=== PATIENT | female | born 1945 | race Caucasian/White ===

== ENCOUNTER 2023-06-04 15:42 | Inpatient (IN) ==
--- NOTE | 2023-06-04 16:23 | Emergency Department Note ---
Impression & Plan Left trimalleolar fracture, Closed fracture of distal end of right fibula, Fall from standing ED Provider Note NAME: RAMIRO ACKERMAN AGE: 77 SEX: F : 1945 ARRIVES VIA: Walk-In INFORMANT: Patient ED PROVIDER(S): Orlando Slade MD CHIEF COMPLAINT: Ankle pain PLAN: Disposition: Admit MEDICAL DECISION MAKING: The patient is a pleasant 77-year-old woman with a past medical history of hypothyroidism, low bone density recently started on bisphosphonate, remote history of PUD/GERD on Protonix who presents to the emergency department via walk-in, by her friend for left ankle pain and deformity after she was doing yard work and stepped on a stoop and felt her right ankle give way falling backwards and planting with her left ankle which also gave way with severe pain and deformity. She reports majority of pain is in her left ankle but does have pain in her right ankle but she was able to hop on her right ankle in order to get to the emergency department with the assistance of her friend who is accompanying her at the bedside. Patient denies any anticoagulation. Denies any head strike or loss of consciousness. She reports she did have a light lunch around noon today. She denies any recent illness. The patient is visiting a friend from her home in the [facility]. On evaluation patient is no acute distress, afebrile with heart rate in the 90s and blood pressure 160/80s in the setting of her discomfort. Left ankle is grossly deformed with medial displacement of the lower leg. Distal PMS is intact. Right ankle demonstrates edema swelling and tenderness of the lateral malleolus. Distal PMS is intact. Plain films obtained to confirm suspected left ankle trimalleolar fracture with displacement/angulation as well as right ankle distal fibular fracture. Patient did consent to close reduction at the bedside with pretreatment with morphine which was subsequently performed and successful with improved alignment on follow-up imaging and improvement of the patient's pain. Given bilateral ankle fractures where weightbearing as tolerated on the right fibular fracture will be difficult and risk for repeat fall she does agree with plan for admission for further management. Next I did review the patient's case with orthopedic surgery on-call, Dr. Nix who was able to review the patient's images. Agrees with admission to medicine service with plan to keep the patient n.p.o. after midnight and anticipation of the OR tomorrow morning for treatment of the patient's left trimalleolar fracture. Right lateral malleoli are/fibular fracture can be managed conservatively with fracture boot and weightbearing as tolerated. WBC, H/H and platelets within normal limits. Chemistry without metabolic acidosis. Electrolytes LFTs unremarkable. Case was discussed with Dr. Hollins, [facility] hospitalist, who will evaluate the patient for admission. Triage Nursing notes reviewed and agree them. Prior/external medical records reviewed Vital Signs: reviewed Differential diagnosis: Fracture, subluxation, dislocation, contusion, ligamentous injury, neurovascular, compartment syndrome, rhabdomyolysis, as well as other pathologies. ER treatment provided: See below. Diagnostics interpreted by me: ECG: NSR, 73 bpm, no ectopy, no overt ST elevation or depression. Cardiac Monitoring: An order for continuous cardiac monitoring was placed and demonstrated NSR, 73 bpm, no ectopy. Laboratory studies: See below Imaging studies: See below Consultation(s): Dr. Nix, orthopedic surgery on-call Dr. Hollins, [facility] hospitalist. HPI: The patient is a pleasant 77-year-old woman with a past medical history of hypothyroidism, low bone density recently started on bisphosphonate, remote history of PUD/GERD on Protonix who presents to the emergency department via walk-in, by her friend for left ankle pain and deformity after she was doing yard work and stepped on a stoop and felt her right ankle give way falling backwards and planting with her left ankle which also gave way with severe pain and deformity. She reports majority of pain is in her left ankle but does have pain in her right ankle but she was able to hop on her right ankle in order to get to the emergency department with the assistance of her friend who is accompanying her at the bedside. Patient denies any anticoagulation. Denies any head strike or loss of consciousness. She reports she did have a light lunch around noon today. She denies any recent illness. The patient is visiting a friend from her home in the [place] area. ROS: See above HPI for pertinent positives & negatives. A total of 10 systems reviewed and were otherwise negative. VITALS:See Below PHYSICAL EXAMINATION: GENERAL: Awake, alert, in no distress HENT: Normocephalic, atraumatic. Oropharynx unremarkable. EYES: Normal conjunctiva. Sclera non-icteric. NECK: Supple. No nuchal rigidity. FROM. No JVD. RESPIRATORY: Clear to auscultation. CARDIAC: Regular rate, normal rhythm. Extremities warm and well perfused. Pulses equal. ABDOMEN: Soft, non-distended. No tenderness to palpation. No rebound or guarding. No masses. MUSCULOSKELETAL: Chest examination reveals no tenderness. The back is symmetrical on inspection without obvious abnormality. No midline CTL spine ttp or step-offs. There is no CVA tenderness to palpation. Left ankle is grossly deformed with medial displacement of the lower leg. Distal PMS is intact. Right ankle demonstrates edema swelling and tenderness of the lateral malleolus. Distal PMS is intact. LOWER EXTREMITIES: Calves are equal size bilaterally and non-tender. NEURO: Normal sensorium. No sensory or motor deficits noted. SKIN: No rash or jaundice noted. ED COURSE: Procedures: Ankle Fracture Dislocation Reduction Indication: Left ankle fracture dislocation. Verbal consent obtained. Risks and benefits were explained with the usual customary discussion. Neurovascular examination before the procedure revealed no deficits. The left ankle fracture dislocation was reduced by placing the patient supine and applying gentle inline axial traction on the left forefoot foot and heel with slight plantar flexion while counter traction on the proximal tibia was applied and distal tibia stabilized with hip and knee in flexion. This resulted in reduction without complication. Post-reduction Xray demonstrates improved anatomic alignment. Neurovascular examination after the procedure revealed no deficits. The patient had significant pain relief and tolerated the procedure well. Splint Care: Ortho glass splint (short posterior and sugar tong) was placed by the tissue technician with my assistance, I examined the splint and confirmed proper application/placement/position. Neurovascular status was intact both proximal and distal to the splinted area. Orlando Slade MD Past Med/Surg History Medical History Left trimalleolar fracture GERD (gastroesophageal reflux disease) Hypothyroidism Social History Smoking Status: Never smoker Hx Alcohol Use: Yes Alcohol type: wine Hx Substance Use: No Preferred Language: Faroese Communication Ability: Effective Composite Laminator Required: No Beliefs That Will Affect Care: None Current Living Situation: Alone Feels Safe at Home: Yes Safety Concerns: Feels Safe At This Time Assistive Devices: Glasses Allergies Allergies Allergy/AdvReac Type Severity Reaction Status Date / Time meloxicam [From Mobic] AdvReac Intermediate Rash Unverified 06/04/23 18:45 Home Meds Home Medications Medication Instructions Recorded Confirmed Vitamin D3 See Rx Instructions .Route .COMPLEX 06/04/23 06/04/23 acetaminophen 500 mg tablet 500 mg PO UD PRN pain or fever 06/04/23 06/04/23 alendronate 70 mg tablet 70 mg PO WK 06/04/23 06/04/23 calcium See Rx Instructions .Route .COMPLEX 06/04/23 06/04/23 levothyroxine 75 mcg tablet 75 mcg PO QAM 06/04/23 06/04/23 pantoprazole 40 mg tablet,delayed 40 mg PO HS 06/04/23 06/04/23 release Results & Data (ED) Vital Signs Vital Signs - 24 hr 06/04/23 16:05 06/04/23 16:53 Temperature 36.8 C Temperature Source Oral Pulse Rate 99 H 85 Pulse Rhythm Regular Regular Pulse Strength Normal Respiratory Rate 22 20 Respiratory Effort / Characteristics Non-Labored Spontaneous Respiratory Depth Normal Respiratory Pattern Regular Blood Pressure 168/86 H Blood Pressure Mean 113 Blood Pressure Position Semi-fowlers Pulse Oximetry 98 98 Oxygen Delivery Method Room Air Room Air Sepsis Recent Fever Within 48 Hours No Sepsis New/Unexplained Change in Mental Status N/A Sepsis Action Taken by Nursing No Action Required Laboratory Data Attestation: I reviewed the patient's lab results. 06/04/23 16:39 06/04/23 16:39 Lab Results 06/04/23 Range/Units 16:39 WBC 8.21 (4.8-10.8) K/ul RBC 4.19 L (4.20-5.40) M/uL Hgb 12.8 (12.0-16.0) g/dl Hct 38.4 (37.0-47.0) % MCV 91.6 (80.0-100.0) fL MCH 30.5 (25.0-34.0) pg MCHC 33.3 (32.0-36.0) g/dL RDW Std Deviation 39.4 (36.4-46.3) fL RDW Coeff of Walt 11.8 (11.5-14.5) % Plt Count 201 (130-400) K/uL MPV 9.3 L (9.4-12.4) fL Immature Gran % (Auto) 0.5 % Neut % (Auto) 73.1 % Lymph % (Auto) 19.4 % Mellette % (Auto) 4.3 % Eos % (Auto) 2.2 % Baso % (Auto) 0.5 % Neut # (Auto) 6.01 (1.40-6.50) K/uL Lymph # (Auto) 1.59 (1.20-3.40) K/uL Mellette # (Auto) 0.35 (0.11-0.59) K/uL Eos # (Auto) 0.18 (0.00-0.50) K/uL Baso # (Auto) 0.04 (0.00-0.20) K/uL Immature Gran # (Auto) 0.04 (0.01-0.20) K/uL Sodium 139 (136-145) mmol/L Potassium 3.6 (3.5-5.1) mmol/L Chloride 103 (98-107) mmol/L Carbon Dioxide 28 (21-32) mmol/L Anion Gap 8 (3-11) BUN 14 (6-23) mg/dl Creatinine 0.71 (0.6-1.2) mg/dl Est Cr Clr Drug Dosing 54.3 ml/min Est GFR ( Amer) 93.9 ml/min Est GFR (Non-Af Amer) 81.0 ml/min BUN/Creatinine Ratio 19.7 (10-20) Glucose 130 H (70-99(Fasting)) mg/dl Calcium 9.3 (8.6-10.3) mg/dl Total Bilirubin 0.3 (0.2-1.0) mg/dl AST 19 (13-39) U/L ALT 10 (7-52) U/L Alkaline Phosphatase 83 (34-104) U/L Total Protein 6.4 (6.0-8.3) gm/dl Albumin 4.3 (3.4-5.0) gm/dl Globulin 2.1 L (2.5-4.0) gm/dl Albumin/Globulin Ratio 2.0 (0.9-2) Administered Medications Heparin Sodium (Porcine) (Heparin Sod 5,000 Unit/0.5 Ml Vial) 5,000 units SQ Q8 ELBA Stop: 07/04/23 21:59 Last Admin: 06/04/23 21:58 Dose: 5,000 units Documented By: MADY Lactated Ringer's (Lr) 1,000 mls @ 80 mls/hr IV .[id number] ELBA Stop: 07/05/23 00:00 Last Admin: 06/04/23 23:11 Dose: 80 mls/hr Documented By: MADY Pantoprazole Sodium (Pantoprazole 40 Mg Tab) 40 mg PO HS ELBA Stop: 07/04/23 21:10 Last Admin: 06/04/23 21:58 Dose: 40 mg Documented By: MADY Discontinued Medications Acetaminophen (Ofirmev) 1,000 mg in 100 mls @ 400 mls/hr IV NOW STA Stop: 06/04/23 16:35 Last Infusion: 06/04/23 17:52 Dose: Infused Documented By: Admin: 06/04/23 16:48 Dose: 400 mls/hr Documented By: LONNIE Sodium Chloride (Nss) 500 mls @ 80 mls/hr IV .[id number] ELBA Stop: 07/04/23 16:29 Last Infusion: 06/04/23 21:32 Dose: Infused Documented By: Admin: 06/04/23 16:48 Dose: 80 mls/hr Documented By: LONNIE Morphine Sulfate (Morphine Sulfate 4 Mg/Ml 1 Ml Carp\Vial) 4 mg IV NOW STA Stop: 06/04/23 16:22 Last Admin: 06/04/23 16:48 Dose: 4 mg Documented By: LONNIE Morphine Sulfate (Morphine Sulfate 4 Mg/Ml 1 Ml Carp\Vial) 4 mg IV NOW STA Stop: 06/04/23 17:25 Last Admin: 06/04/23 17:30 Dose: 4 mg Documented By: PRASAD Morphine Sulfate (Morphine Sulfate 2 Mg/Ml Carp) 2 mg IV NOW STA Stop: 06/04/23 18:01 Last Admin: 06/04/23 18:15 Dose: 2 mg Documented By: PRASAD Ondansetron HCl (Ondansetron Inj 2 Mg/Ml 2 Ml Vial) 4 mg IV NOW STA Stop: 06/04/23 16:23 Last Admin: 06/04/23 16:48 Dose: 4 mg Documented By: LONNIE Imaging Data Radiologist's Impression: Ankle X-Ray 06/04/23 16:19 XR ankle RT min 3V routine HISTORY: 77 years-old Female pain fall acute right ankle pain status post fall COMPARISON: None TECHNIQUE: 3 views of the right ankle FINDINGS: Moderate to marked anterolateral prominent soft tissue swelling. Demineralized appearance of the bones. There is an acute transversely oriented fracture of the lateral malleolus with extension into the lateral clear space demonstrating 4 mm distal distraction. Os trigonum. Small joint effusion. No additional acute fracture or dislocation. IMPRESSION: Acute lateral malleolar fracture with soft tissue swelling. ACT 112: Negative or not required by law. The above report was generated using voice recognition software. It may contain grammatical, syntax or spelling errors. Electronically signed by: Joon Can M.D. 06/04/2023 6:08 PM Ankle X-Ray 06/04/23 16:19 XR ankle LT 2V HISTORY: 77 years-old Female pain fall acute left ankle pain status post fall COMPARISON: None TECHNIQUE: 2 views of the left ankle FINDINGS: Limited exam secondary to positioning. Demineralized appearance of the bones. Mild to moderate osteoarthritis. Acute fracture dislocation of the ankle. Acute and displaced medial malleolar fracture demonstrates 2 mm lateral displacement. Acute, comminuted, angulated and displaced distal fibular fracture demonstrates approximately 4 mm lateral and 2.5 cm posterior displacement. Moderate soft tissue swelling. There is apex medial angulation of the dislocated tibiotalar joint. Probable acute nondisplaced posterior malleolar fracture. IMPRESSION: Acute fracture dislocation of the ankle as above. ACT 112: Negative or not required by law. The above report was generated using voice recognition software. It may contain grammatical, syntax or spelling errors. Electronically signed by: Joon Can M.D. 06/04/2023 6:10 PM Ankle X-Ray 06/04/23 17:46 XR ankle LT min 3V routine HISTORY: 77 years-old Female post reduction/splint acute left ankle pain status post trauma COMPARISON: Left ankle radiographs of same day TECHNIQUE: 3 views of the left ankle FINDINGS: Status post reduction and casting of the acute left ankle fractures. There is improved alignment of the ankle fractures, suboptimally evaluated secondary to overlying casting material. 5 mm lateral displacement of the lateral malleolar fracture. Posterior malleolar fracture demonstrates 5 mm posterior displacement. 2 mm medial displacement of the medial malleolar fracture. No dislocation. IMPRESSION: 1. Improved alignment of the acute trimalleolar ankle fracture status post reduction and casting. 2. Status post reduction of the tibiotalar joint. ACT 112: Negative or not required by law. The above report was generated using voice recognition software. It may contain grammatical, syntax or spelling errors. Electronically signed by: Joon Can M.D. 06/04/2023 6:21 PM Discharge Plan Visit Data Chief Complaint: Leg Injury/Pain Stated Complaint: LEG PAIN ED Provider: Orlando Slade Discharge Problem: Left trimalleolar fracture, Closed fracture of distal end of right fibula, Fall from standing Patient Disposition: Admitted As Inpatient Discharge Instructions Interventions: ED Discharge Assessment Last Done: 06/04/23 20:34 Discharge Problem: Left trimalleolar fracture Qualifiers: Encounter type: initial encounter Fracture type: closed Qualified Code(s): S 82.852A - Displaced trimalleolar fracture of left lower leg, initial encounter for closed fracture Closed fracture of distal end of right fibula Qualifiers: Encounter type: initial encounter Fracture morphology: unspecified fracture morphology Qualified Code(s): S82.831A - Other fracture of upper and lower end of right fibula, initial encounter for closed fracture Fall from standing Qualifiers: Encounter type: initial encounter Qualified Code(s): W19.XXXA - Unspecified fall, initial encounter
[2023-06-04] MEDS: ONDANSETRON INJ 2 MG/ML 2 ML VIAL IV STA (16:48)
[2023-06-04] MEDS: MoRPHine SULFATE 4 MG/ML 1 ML CARP\\VIAL IV STA ×2 (16:48→17:30)
[2023-06-04] MEDS: ACETAMINOPHEN 1,000 MG/100 ML VIAL IV STA (16:48)
[2023-06-04] MEDS: SODIUM CHLORIDE 0.9% 500 ML IV SCH (16:48)
[2023-06-04 17:00] LABS: Basophils # (auto) 0.04 K/uL (0.00-0.20); Basophils % (auto) 0.5 %; Eosinophils # (auto) 0.18 K/uL (0.00-0.50); Eosinophils % (auto) 2.2 %; Hematocrit (blood only) 38.4 % (37.0-47.0); Hemoglobin 12.8 g/dl (12.0-16.0); Immature Granulocytes # (auto) 0.04 K/uL (0.01-0.20); Immature Granulocytes % (auto) 0.5 %; Lymphocytes # (auto) 1.59 K/uL (1.20-3.40); Lymphocytes % (auto) 19.4 %; Mean Corpuscular Hemoglobin 30.5 pg (25.0-34.0); Mean Corpuscular Hgb Conc 33.3 g/dL (32.0-36.0); Mean Corpuscular Volume 91.6 fL (80.0-100.0); Mean Platelet Volume 9.3 fL (9.4-12.4); Monocytes # (auto) 0.35 K/uL (0.11-0.59); Monocytes % (auto) 4.3 %; Neutrophils # (auto) 6.01 K/uL (1.40-6.50); Neutrophils % (auto) 73.1 %; Platelet Count 201 K/uL (130-400); RDW Coefficient of Variation 11.8 % (11.5-14.5); RDW Standard Deviation 39.4 fL (36.4-46.3); Red Blood Count 4.19 M/uL (4.20-5.40); White Blood Count 8.21 K/ul (4.8-10.8)
[2023-06-04 17:16] LABS: Albumin Level 4.3 gm/dl (3.4-5.0); BUN Creatinine Ratio 19.7 (10-20); Bilirubin,Total 0.3 mg/dl (0.2-1.0); Calcium 9.3 mg/dl (8.6-10.3); Creatinine Clr Calc Pharmacy 54.3 ml/min; Est GFR (African American) 93.9 ml/min; Globulin 2.1 gm/dl (2.5-4.0); Potassium 3.6 mmol/L (3.5-5.1); Total Protein 6.4 gm/dl (6.0-8.3)
--- NOTE | 2023-06-04 18:09 | XRay Report ---
XR ankle RT min 3V routine HISTORY: 77 years-old Female pain fall acute right ankle pain status post fall COMPARISON: None TECHNIQUE: 3 views of the right ankle FINDINGS: Moderate to marked anterolateral prominent soft tissue swelling. Demineralized appearance of the bone s. There is an acute transversely oriented fracture of the lateral malleolus with extension into the lateral clear space demonstrating 4 mm distal distraction. Os trigonum. Small joint effusion. No sanjay tional acute fracture or dislocation. IMPRESSION: Acute lateral malleolar fracture with soft tissue swelling. ACT 112: Negative or not required by law. The above report was generated using voice recognition software. It may contain grammatical, syntax o r spelling errors. Electronically signed by: Joon Can M.D. 06/04/2023 6:08 PM
--- NOTE | 2023-06-04 18:11 | XRay Report ---
XR ankle LT 2V HISTORY: 77 years-old Female pain fall acute left ankle pain status post fall COMPARISON: None TECHNIQUE: 2 views of the left ankle FINDINGS: Limited exam secondary to positioning. Demineralized appearance of the bones. Mild to moderate osteoa rthritis. Acute fracture dislocation of the ankle. Acute and displaced medial malleolar fracture demo nstrates 2 mm lateral displacement. Acute, comminuted, angulated and displaced distal fibular fractur e demonstrates approximately 4 mm lateral and 2.5 cm posterior displacement. Moderate soft tissue swe lling. There is apex medial angulation of the dislocated tibiotalar joint. Probable acute nondisplace d posterior malleolar fracture. IMPRESSION: Acute fracture dislocation of the ankle as above. ACT 112: Negative or not required by law. The above report was generated using voice recognition software. It may contain grammatical, syntax o r spelling errors. Electronically signed by: Joon Can M.D. 06/04/2023 6:10 PM
[2023-06-04] MEDS: MoRPHine SULFATE 2 MG/ML CARP IV STA (18:15)
--- NOTE | 2023-06-04 18:22 | XRay Report ---
XR ankle LT min 3V routine HISTORY: 77 years-old Female post reduction/splint acute left ankle pain status post trauma COMPARISON: Left ankle radiographs of same day TECHNIQUE: 3 views of the left ankle FINDINGS: Status post reduction and casting of the acute left ankle fractures. There is improved alignment of t he ankle fractures, suboptimally evaluated secondary to overlying casting material. 5 mm lateral disp lacement of the lateral malleolar fracture. Posterior malleolar fracture demonstrates 5 mm posterior displacement. 2 mm medial displacement of the medial malleolar fracture. No dislocation. IMPRESSION: 1. Improved alignment of the acute trimalleolar ankle fracture status post reduction and casting. 2. Status post reduction of the tibiotalar joint. ACT 112: Negative or not required by law. The above report was generated using voice recognition software. It may contain grammatical, syntax o r spelling errors. Electronically signed by: Joon Can M.D. 06/04/2023 6:21 PM
--- NOTE | 2023-06-04 19:00 | History & Physical Report ---
Date of Service June 04, 2023 Assessment & Plan (1) Left trimalleolar fracture: Plan: Left trimalleolar fracture Patient slipped on a stoop landed and rolled her ankle, sustained a left trimalleolar fracture and also bruised her right ankle as she fell No syncope, presyncope, lightheadedness, dizziness. No head strike. No loss of consciousness. She is not on blood thinners Left ankle x-ray: Trimalleolar ankle fracture, repeat x-ray post reduction with improved alignment. Right ankle x-ray: Acute lateral malleolus fracture with soft tissue swelling Patient will have operative repair of the left trimalar fracture with Dr. Nix 06/05/2023. N.p.o. at midnight. Tylenol and morphine on for multimodal pain control Right ankle lateral malleolar fracture may be managed with weightbearing as tolerated; however given her concurrent left ankle fracture and inability to offload weight will be placed in a walking boot Neurovascularly intact at time of bedside assessment Orthopedics consulted RCRI class I risk. No modifiable risk factors at this time. Commend proceeding to surgery as recommended (2) Hypothyroidism: Plan: Continue Synthroid (3) GERD (gastroesophageal reflux disease): Plan: Continue Protonix Patient does have a history of duodenal ulcer with reparation several years ago. Continue Protonix daily, may also use Pepcid as needed Avoid NSAIDs Plan DVT prophylaxis: Heparin subcu, hold morning of surgery CODE STATUS: Full code Disposition: Medical/surgical Diet: Full liquids until midnight, n.p.o. after midnight History of Present Illness Primary Care Provider: NO PCP She is seen at the bedside with her friend Megan present. She is visiting from out of town, [place]. Samantha reports she is normally very healthy and has no medical history other than a history of perforated duodenal ulcer almost 3 years ago. OK now on protonix, and also result to be due to aspirin which is discontinued. She has a history of cervical arthritis and past injury which had some transient numbness and tingling but resolved following initial steroid injections and now does well with PT alone. No weakness or strength deficits. She is a avid walker, somewhat limited by intermittent rare arthritis knee pain but otherwise with no pain and has no history of shortness of breath, dyspnea, chest pain, chest pressure, CHF. She has no history of diabetes. No history of strokes. Denies hypertension. She has not had any bleeding/clotting disease. She has had a rash to Mobic otherwise no medication allergies. She drinks intermittently socially, not daily and not in excess. No current or past tobacco use. No recreational drug use. No history of insulin use Medical History: Reviewed Medications: Reviewed Surgical History: Reviewed Family history: Reviewed Allergies: Reviewed. Rash to mobic. Social History:No tobacco use. Rare social etoh use Code Status: Full Code Surrogate DM: Megan Philippe [phone] Allergies Allergy/AdvReac Type Severity Reaction Status Date / Time meloxicam [From Mob] AdvReac Intermediate Rash Unverified 06/04/23 18:45 Home Medications Medication Instructions Recorded Confirmed Type Vitamin D3 See Rx Instructions .Route .COMPLEX 06/04/23 06/04/23 History acetaminophen 500 mg tablet 500 mg PO UD PRN pain or fever 06/04/23 06/04/23 History alendronate 70 mg tablet 70 mg PO WK 06/04/23 06/04/23 History calcium See Rx Instructions .Route .COMPLEX 06/04/23 06/04/23 History levothyroxine 75 mcg tablet 75 mcg PO QAM 06/04/23 06/04/23 History pantoprazole 40 mg tablet,delayed 40 mg PO HS 06/04/23 06/04/23 History release Past Med/Surg History Medical History (Updated 06/04/23 @ 19:20 by Judah Hollins MD) Left trimalleolar fracture GERD (gastroesophageal reflux disease) Hypothyroidism Social History Smoking Status: Never smoker Preferred Language: Beninese Feels Safe at Home: Yes Physical Exam Physical Exam: General: A&Ox3. NAD. Cooperative. HEENT: Atraumatic, normocephalic. Vision and hearing grossly intact Pulm: CTAB A&P. -wheezes, -rales, -rhonchi. Symmetrical chest rise. No increased work of breathing. No respiratory distress. Cardiac: RRR, -mrg. Radial pulses intact and symmetrical. Abdominal: Nontender, nondistended, soft. BS present. Extremities: Left lower extremity with Jose wrap and immobilization. Sensation in toes intact, able to wiggle toes without difficulty. DP pulse is palpable. Cap refill is brisk. Right lateral ankle is with swelling and contusion. Able to wiggle right toes without difficulty, sensation intact, PT and DP pulse are palpable. Cap refill brisk. No signs of lower extremity neurovascular compromise Results & Data Results & Data Vital Signs (Past 12 Hours) Vital Signs Temp Pulse Resp BP Pulse Ox O2 Del Method 06/04/23 16:53 85 20 98 Room Air 06/04/23 16:05 36.8 C 99 H 22 168/86 H 98 Room Air PG Care Time/CCT Total # of Minutes Spent Total Time Spent with Patient: Total time spent is greater than 50% in coordination of care (as documented) at patient's floor/unit and/or counseling patient: Coding Level of Care Code 70975 INT INP/OBS CARE 2/55MIN Diagnoses Left trimalleolar fracture S82.852A Hypothyroidism E03.9 GERD (gastroesophageal reflux disease) K21.9
[2023-06-04] MEDS ORDERED: MoRPHine SULFATE 4 MG/ML 1 ML CARP\\VIAL IV PRN (19:31)
[2023-06-04] MEDS: PANTOprazole 40 MG TAB PO SCH (21:58)
[2023-06-04] MEDS: HEPARIN SOD 5,000 UNIT/0.5 ML VIAL SQ SCH (21:58)
[2023-06-04] MEDS: LACTATED RINGER'S 1,000 ML IV SCH (23:11)
[2023-06-05] MEDS: LEVOTHYROXINE SODIUM 75 MCG TABLET PO SCH (05:52)
[2023-06-05] MEDS: MoRPHine SULFATE 2 MG/ML CARP IV PRN (06:23)
[2023-06-05 07:14] LABS: Basophils # (auto) 0.02 K/uL (0.00-0.20); Basophils % (auto) 0.3 %; Eosinophils # (auto) 0.05 K/uL (0.00-0.50); Eosinophils % (auto) 0.8 %; Hematocrit (blood only) 32.8 % (37.0-47.0); Hemoglobin 11.1 g/dl (12.0-16.0); Immature Granulocytes # (auto) 0.03 K/uL (0.01-0.20); Immature Granulocytes % (auto) 0.5 %; Lymphocytes # (auto) 1.09 K/uL (1.20-3.40); Lymphocytes % (auto) 17.2 %; Mean Corpuscular Hgb Conc 33.8 g/dL (32.0-36.0); Mean Corpuscular Volume 91.6 fL (80.0-100.0); Mean Platelet Volume 9.5 fL (9.4-12.4); Monocytes % (auto) 7.9 %; Neutrophils # (auto) 4.63 K/uL (1.40-6.50); Neutrophils % (auto) 73.3 %; Platelet Count 183 K/uL (130-400); RDW Coefficient of Variation 11.9 % (11.5-14.5); Red Blood Count 3.58 M/uL (4.20-5.40); White Blood Count 6.32 K/ul (4.8-10.8)
[2023-06-05 07:38] LABS: BUN Creatinine Ratio 17.5 (10-20); Calcium 8.2 mg/dl (8.6-10.3); Creatinine Clr Calc Pharmacy 65.3 ml/min; Est GFR (African American) 102.2 ml/min; Est GFR (Non-African American) 88.2 ml/min; Potassium 3.8 mmol/L (3.5-5.1)
--- NOTE | 2023-06-05 11:54 | Electrocardiogram Report ---
Test Reason : Blood Pressure : / mmHG Vent. Rate : 073 BPM Atrial Rate : 073 BPM P-R Int : 130 ms QRS Dur : 092 ms QT Int : 420 ms P-R-T Axes : 046 015 069 degrees QTc Int : 462 ms Normal sinus rhythm Normal ECG No previous ECGs available Confirmed by Sj Valdez ([id number]) on 06/05/2023 11:53:48 AM Referred By: REFERRED SELF Confirmed By:Sj Valdez
--- NOTE | 2023-06-05 13:28 | Orthopedic Consultation ---
Date of Consultation June 05, 2023 Assessment & Plan (1) Left trimalleolar fracture: 77-year-old female with left trimalleolar ankle fracture Nonweightbearing left lower extremity Pain control DVT prophylaxis Midnight Admission Plan for or tomorrow for left ankle interposition (2) Closed fracture of distal end of right fibula: Plan Weight-bear as tolerated right lower extremity in the cam boot walker History of Present Illness Reason for Consultation: right distal fibula tip fracture left trimalleolar ankle fracture Attending Physician: Kimberly Nunez MD History of Present Illness 77-year-old female presenting after sustaining a fall off her step at home yesterday. She reports that she twisted both of her ankles. Dependable about the left ankle so she presented to emergency department where she was found to have a fracture dislocation of left ankle. She successfully underwent reduction emergency department. She was also found to have a isolated distal for left hip avulsion fracture on the right ankle. Patient was admitted to medical service and orthopedics was consulted for operative management. Allergies Allergy/AdvReac Type Severity Reaction Status Date / Time meloxicam [From Mobic] AdvReac Intermediate Rash Unverified 06/04/23 18:45 Home Medications Medication Instructions Recorded Confirmed Type Vitamin D3 See Rx Instructions .Route .COMPLEX 06/04/23 06/04/23 History acetaminophen 500 mg tablet 500 mg PO UD PRN pain or fever 06/04/23 06/04/23 History alendronate 70 mg tablet 70 mg PO WK 06/04/23 06/04/23 History calcium See Rx Instructions .Route .COMPLEX 06/04/23 06/04/23 History levothyroxine 75 mcg tablet 75 mcg PO QAM 06/04/23 06/04/23 History pantoprazole 40 mg tablet,delayed 40 mg PO HS 06/04/23 06/04/23 History release Patient History Medical History Left trimalleolar fracture GERD (gastroesophageal reflux disease) Hypothyroidism Social History Smoking Status: Never smoker Hx Alcohol Use: Yes Alcohol type: wine Hx Substance Use: No Preferred Language: Serbian Communication Ability: Effective Pencil Inspector Required: No Beliefs That Will Affect Care: None Current Living Situation: Alone Feels Safe at Home: Yes Safety Concerns: Feels Safe At This Time Assistive Devices: Glasses Physical Exam Constitutional: nad, aaox3 Musculoskeletal: LLE - in splint - silt distally to toes - wiggles toes - bcr RLE - in CAM boot - silt s/spn/dpn/t/s - fires ta/ehl/gsc + dp/pt Results & Data Vital Signs (Past 12 Hours) Vital Signs Temp Pulse Resp BP Pulse Ox O2 Del Method 06/05/23 08:13 36.8 C 79 18 106/70 94 Room Air (1) Left trimalleolar fracture Encounter type: initial encounter Fracture type: closed Qualified Code(s): S82.852A - Displaced trimalleolar fracture of left lower leg, initial encounter for closed fracture (2) Closed fracture of distal end of right fibula Encounter type: initial encounter Fracture morphology: unspecified fracture morphology Qualified Code(s): S82.831A - Other fracture of upper and lower end of right fibula, initial encounter for closed fracture
[2023-06-05] MEDS ORDERED: oxyCODONE HCL IR 5 MG TAB (IMMEDIATE RELEASE) PO PRN (14:52)
--- NOTE | 2023-06-05 15:00 | Hospitalist Progress Note ---
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 She routinely stays in [facility] for work during weekdays and stays with a friend, but lives closer to [place]. Fell and sustained bilateral ankle fractures Left trimalleolar fracture Patient will have operative repair of the left trimalar fracture with Dr. Nix 06/06/2023. N.p.o. at midnight. Tylenol and morphine on for multimodal pain control, added po oxycodone for milder pain Right ankle lateral malleolar fracture may be managed with weightbearing as tolerated; however given her concurrent left ankle fracture and inability to offload weight will be placed in a walking boot RCRI class I risk. No modifiable risk factors at this time. recommend proceeding to surgery as planned (2) Hypothyroidism: Plan: Continue Synthroid (3) GERD (gastroesophageal reflux disease): Plan: Continue Protonix Patient does have a history of duodenal ulcer with reparation several years ago. Continue Protonix daily, may also use Pepcid as needed Avoid NSAIDs Plan DVT prophylaxis: Heparin subcu, hold morning of surgery Her home does not require stairs, has an elevator Her friends house here does require stairs She plans to have one or two of the sisters (they are based in [place]) come to stay with her to help with recovery. She drives a lot for work - we discussed she may not be able to drive for some time, until RLE is cleared for driving by ortho Admission and Anticipated Discharge Date Admission Date: June 04, 2023 Subjective L ankle pain controlled with splint and current dose of morphine. R ankle not very painful. Physical Exam Physical Exam: PHYSICAL EXAMINATION Last 24h vital signs reviewed, see documentation in flowsheet General: comfortable appearing, no distress HEENT: Normocephalic, atraumatic, pupils round and equal, sclerae anicteric, no conjunctival injection, moist mucus membranes Lungs: Normal respiratory effort. Clear to auscultation bilaterally. No RRW Heart: Regular rate and rhythm, no murmurs. No JVD Abdomen: Soft, nontender, nondistended. Bowel sounds present. Extremities: toes bilaterally are warm and well-perfused. Wearing surgical shoe right lower extremity and splint wrapped in Jose wrap on left lower extremity Neuro: Alert and oriented x 4, face symmetric, moves 4 extremities well Psych: Normal affect and behavior Results & Data Results & Data Vital Signs (Past 12 Hours) Vital Signs Temp Pulse Resp BP Pulse Ox O2 Del Method 06/05/23 08:13 36.8 C 79 18 106/70 94 Room Air PG Care Time/CCT Total # of Minutes Spent Total Time Spent with Patient: Total time spent is greater than 50% in coordination of care (as documented) at patient's floor/unit and/or counseling patient: Coding Level of Care Code 00093 SUB INP/OBS CARE 2/35MIN Diagnoses Left trimalleolar fracture S82.852A Encounter type: initial encounter Fracture type: closed Hypothyroidism E03.9 GERD (gastroesophageal reflux disease) K21.9 (1) Left trimalleolar fracture Encounter type: initial encounter Fracture type: closed Qualified Code(s): S82.852A - Displaced trimalleolar fracture of left lower leg, initial encounter for closed fracture
[2023-06-06 05:48] LABS: Basophils # (auto) 0.03 K/uL (0.00-0.20); Basophils % (auto) 0.6 %; Eosinophils # (auto) 0.14 K/uL (0.00-0.50); Eosinophils % (auto) 2.6 %; Hematocrit (blood only) 31.8 % (37.0-47.0); Hemoglobin 10.5 g/dl (12.0-16.0); Immature Granulocytes # (auto) 0.01 K/uL (0.01-0.20); Immature Granulocytes % (auto) 0.2 %; Lymphocytes # (auto) 1.21 K/uL (1.20-3.40); Lymphocytes % (auto) 22.7 %; Mean Corpuscular Hemoglobin 30.6 pg (25.0-34.0); Mean Corpuscular Volume 92.7 fL (80.0-100.0); Mean Platelet Volume 9.3 fL (9.4-12.4); Monocytes % (auto) 7.5 %; Neutrophils # (auto) 3.53 K/uL (1.40-6.50); Neutrophils % (auto) 66.4 %; Platelet Count 161 K/uL (130-400); RDW Coefficient of Variation 11.9 % (11.5-14.5); RDW Standard Deviation 40.3 fL (36.4-46.3); Red Blood Count 3.43 M/uL (4.20-5.40); White Blood Count 5.32 K/ul (4.8-10.8)
[2023-06-06 06:00] LABS: Calcium 7.8 mg/dl (8.6-10.3); Creatinine Clr Calc Pharmacy 70.2 ml/min; Est GFR (African American) 104.7 ml/min; Est GFR (Non-African American) 90.3 ml/min; Potassium 3.8 mmol/L (3.5-5.1)
--- NOTE | 2023-06-06 07:04 | Anesthesiology Consultation ---
Date of Service June 06, 2023 Assessment & Plan (1) Encounter for pre-operative examination: Chart Review Chart Review: Acceptable Risk for Surgery ASA ASA2 Proposed Anesthesia Anesthesia Type: General Regional Regional Laterality: Left Site: Popliteal and Adductor Canal History Surgery Operation Date: 06/06/23 07:30 Proposed Procedures p Open Reduction Internal Fixation Left Ankle(Left) - Joon Nix DO Height/Weight Height: 5 ft Weight: 60.9 kg Allergies Allergy/AdvReac Type Severity Reaction Status Date / Time meloxicam [From Mobic] AdvReac Intermediate Rash Unverified 06/04/23 18:45 Medications Home Medications Medication Instructions Recorded Confirmed Last Taken Vitamin D3 See Rx Instructions .Route .COMPLEX 06/04/23 06/04/23 06/04/23 acetaminophen 500 mg tablet 500 mg PO UD PRN pain or fever 06/04/23 06/04/23 Unknown alendronate 70 mg tablet 70 mg PO WK 06/04/23 06/04/23 Unknown calcium See Rx Instructions .Route .COMPLEX 06/04/23 06/04/23 06/04/23 levothyroxine 75 mcg tablet 75 mcg PO QAM 06/04/23 06/04/23 06/04/23 pantoprazole 40 mg tablet,delayed 40 mg PO HS 06/04/23 06/04/23 Unknown release Active Medications Generic Name Dose Route Start Last Admin Trade Name Freq PRN Reason Stop Dose Admin Heparin Sodium (Porcine) 5,000 units 06/04/23 22:00 06/06/23 05:02 Heparin Sod 5,000 Unit/0.5 Ml Vial SQ 07/04/23 21:59 Not Given Q8 ELBA Lactated Ringer's 1,000 mls @ 80 mls/hr 06/05/23 00:00 06/05/23 23:09 Lr IV 07/05/23 00:00 80 mls/hr .[id number] ELBA Administration Levothyroxine Sodium 75 mcg 06/05/23 06:30 06/06/23 05:40 Levothyroxine Sodium 75 Mcg Tablet PO 07/05/23 06:29 75 mcg DAILYBB ELBA Administration Morphine Sulfate 2 mg 06/04/23 19:31 06/05/23 14:44 Morphine Sulfate 2 Mg/Ml Carp IV 06/18/23 19:30 2 mg Q4H PRN Administration Moderate Pain (4,5,6) on NRS Pantoprazole Sodium 40 mg 06/04/23 21:11 06/05/23 21:16 Pantoprazole 40 Mg Tab PO 07/04/23 21:10 40 mg HS ELBA Administration NPO Date Last Intake of Fluids: 06/05/23 Time Last Intake of Fluids: 00:00 Date Last Intake of Solids: 06/04/23 Past Medical History Medical History (Updated 06/06/23 @ 07:16 by Enrique Taylor MD) Left trimalleolar fracture GERD (gastroesophageal reflux disease) Hypothyroidism Past Surgical History Surgical History (Updated 06/06/23 @ 07:15 by Enrique Taylor MD) Hx of colonoscopy Hx of bilateral cataract extraction Social History Smoking Status: Never smoker Hx Alcohol Use: Yes Alcohol type: wine alcohol intake frequency: holidays/special occasions only Hx Substance Use: No Physical Exam Vital Signs Last Vital Signs Temp 36.8 C 06/05/23 19:14 Pulse 90 06/05/23 19:14 Resp 18 06/05/23 19:14 BP 121/71 06/05/23 19:14 Pulse Ox 94 06/05/23 19:14 O2 Del Method Room Air 06/05/23 19:14 Testing Laboratory Results 06/06/23 05:15 06/06/23 05:15 Electrocardiogram Date: 06/04/23 Findings: + NSR @ (73)
[2023-06-06] MEDS ORDERED: ROPIVACAINE 0.5% 5 MG/ML 30 ML VIAL ONE (07:05)
[2023-06-06] MEDS ORDERED: SODIUM CHLORIDE 0.9% PF INJ 10 ML VIAL ONE (07:05)
[2023-06-06] MEDS ORDERED: MIDAZOLAM HCL 1 MG/ML 2ML VIAL ONE (07:12)
[2023-06-06] MEDS ORDERED: fentaNYL citrate PF 100 MCG/2 ML VIAL ONE (07:12)
[2023-06-06] MEDS ORDERED: PROMETHAZINE HCL 6.25 MG in SODIUM CHLORIDE 0.9% 50 ML IV PRN (07:19)
[2023-06-06] MEDS ORDERED: ONDANSETRON INJ 2 MG/ML 2 ML VIAL IV PRN ×2 (07:19→09:57)
[2023-06-06] MEDS ORDERED: ATROPINE SULFATE 0.1 MG/ML 10ML SYR IV PRN (07:19)
--- NOTE | 2023-06-06 07:51 | History & Physical Bridge Note ---
Date of Service June 06, 2023 History & Physical Bridge Note I have examined the patient, reviewed the History & Physical and in the interval since the performance of the History & Physical I have noted the following changes of clinical significance: no changes noted. I met with the patient and we had a lengthy discussion regarding risk benefits potential complications of left ankle open reduction internal fixation. These include but are not limited to infection, neurovascular injury, DVT, nonunion, malunion, hardware failure and need for future surgery. After reviewing these they elected to proceed with surgical intervention and written consent was obtained
[2023-06-06] MEDS: ceFAZolin 2000MG 2,000 MG/15 ML SYR IV ONE (08:04)
[2023-06-06] MEDS ORDERED: DEXAMETHASONE SOD INJ 4 MG/ML VIAL ONE (09:10)
[2023-06-06] MEDS ORDERED: ONDANSETRON INJ 2 MG/ML 2 ML VIAL ONE (09:10)
[2023-06-06] MEDS ORDERED: LIDOCAINE 2% 2 ML VIAL/AMP(20MG/ML) INFIL ONE (09:10)
[2023-06-06] MEDS ORDERED: PROPOFOL IV EMULSION 10 MG/ML 20 ML VIAL IV ONE (09:10)
--- NOTE | 2023-06-06 09:41 | Fluoroscopy Report ---
FL ankle LT 2V CLINICAL HISTORY: LT ANKLE ORIF COMPARISON STUDY: None. FLUOROSCOPY TIME: 22 seconds FLUOROSCOPY IMAGES: 2 Ka,r: 0.5 mGy FINDINGS: Status post internal fixation of a trimalleolar left ankle fracture. The hardware appears i ntact. Alignment appears near-anatomic. IMPRESSION: Fluoroscopic assistance as above. ACT 112: Negative or not required by law. Electronically signed by: Shorty Mcdowell M.D. 06/06/2023 9:40 AM
[2023-06-06] MEDS: HYDROmorphone INJ 1 MG/ML SYRINGE IV PRN (09:46)
--- NOTE | 2023-06-06 09:56 | Post Operative Brief Note ---
Immediate Post Op Note v1 Date of Surgery June 06, 2023 Pre & Post Diagnosis Operation Date: 06/06/23 07:30 Pre-Op Diagnosis: Left trimalleolar fracture Post-Op Diagnosis: Left trimalleolar fracture I identified the patient and participated in the time-out.: Yes Procedure Operation Date: 06/06/23 07:30 Actual Procedures p Open Reduction Internal Fixation Left Ankle(Left) - Joon Nix DO Surgeon Joon Nix DO Fabric Worker Fitter none Estimated Blood Loss 5 Findings Consistent with Post-Op Diagnosis see dictation Complications none
[2023-06-06] MEDS ORDERED: bisacodyL 10 MG SUPP PR PRN (09:57)
[2023-06-06] MEDS ORDERED: NALOXONE HCL 0.4 MG/1 ML VIAL/CARP IV PRN (09:57)
[2023-06-06] MEDS ORDERED: MAGNESIUM HYDROXIDE SUSP 30 ML UDC PO PRN (09:57)
[2023-06-06] MEDS ORDERED: METOCLOPRAMIDE HCL INJ 5 MG/ML 2 ML VIAL IV PRN (09:57)
--- NOTE | 2023-06-06 10:09 | Operative Report ---
Post Operative Report Pre & Post Diagnosis Operation Date: 06/06/23 07:30 Pre-Op Diagnosis: Left trimalleolar fracture Post-Op Diagnosis: Left trimalleolar fracture w/ syndesmotic widening I identified the patient and participated in the time-out.: Yes Procedure Operation Date: 06/06/23 07:30 Actual Procedures p Open Reduction Internal Fixation Left Ankle(Left) with syndesmotic repair - Joon Nix DO Surgeon Joon Nix, Test And Balance Engineer none Estimated Blood Loss 5 Findings Consistent with Post-Op Diagnosis see dictation Specimens see dictation Complications none Indications 77-year-old female presenting after sustaining a tripping injury with a chief complaint of bilateral lower extremity pain. She was found to have a displaced trimalleolar left ankle fracture with a right distal fibula fracture distal to the syndesmosis. Patient was admitted to medical service and orthopedics was consulted for operative management. I had a lengthy discussion with her regarding risk benefits and potential complications of left ankle open reduction internal fixation. After reviewing these she elected to proceed with surgical intervention right consent was obtained Description of Procedure Implants: Synthes one third tubular plate 8 hole, two 3.5 mm cancellous locking screws, three 3.5 mm cortical nonlocking screws, two 4.0 mm x 44 mm partially- threaded cannulated screws, 1 Arthrex tightrope Procedure: Patient was properly marked and identified in the preoperative holding area. She received regional anesthesia. She was then taken back to the operative suite where she received antibiotics per protocol and was positioned supine on a regular OR table with bone foam and nonsterile left thigh tourniquet. Patient was then prepped and draped in the standard orthopedic fashion and timeout was then performed. Esmarch was used to exsanguinate the left lower extremity and the tourniquet was inflated to 250 mmHg. A 7 cm incision overlying the distal fibula was then made with a scalpel. Dissection was carried out down through the subcutaneous tissue to the lateral cortex of the fibula. Fracture site was identified the fracture hematoma was then removed using combination of a curette and rongeur. An 8 hole plate was then selected. Tenaculum was used to anatomically reduce the fracture. A single cortical screw was drilled and placed proximal to the fracture site. Attention was then turned to the distal end of the fracture where 2 locking cancellous screws were then drilled and placed. An additional 2 cortical nonlocking locking screws were then drilled and placed in the proximal aspect of the plate. Attention was then turned to the medial malleolus fracture. A 2 cm incision was made over the tip of the medial malleolus. 2 smooth guidewires were then inserted through the tip of the medial malleolus into the distal tibia. This demonstrated anatomic reduction. Two 4 mm x 44 mm partially-threaded cannulated screws were then inserted over the guidewires and compressed. Guidewires were then removed. This demonstrated satisfactory reduction of the fracture and position of the implants. Stress radiograph was then obtained which did appear to demonstrate some slight widening of the medial clear space. Decision was then made to place a single Arthrex tight rope. Drill was then drilled Quadra cortically through the lateral aspect of the distal fibula plate through to the medial cortex. Drill was then removed and tight rope was then inserted and compressed against the plate. At this point final radiographs were then obtained. Wounds were th en copiously irrigated using normal saline solution. Subcutaneous tissues were then closed using 2-0 Vicryl. 3-0 nylon was then used to close the medial incision. 4-0 running Monocryl followed by Dermabond was used to close the laterally based incision. Patient was then placed in a dressing of Xeroform 4 x 4 gauze web roll ABD followed by a 3 sided splint and Jose wrap. Tourniquet was then deflated. The patient tolerated the procedure well was taken to recovery room in hemodynamically stable condition I attest to the content of the Intraoperative Record and any orders documented therein. Any exceptions are noted below.
--- NOTE | 2023-06-06 10:18 | Anesthesiology Progress Note ---
Date of Service June 06, 2023 Anesthesia Post Procedure Vital Signs Vital Signs: Temp Pulse Pulse Resp BP Pulse Ox O2 Del Method 06/06/23 10:05 37.2 C 69 16 113/70 98 Nasal Cannula 06/06/23 09:55 69 14 110/62 96 Nasal Cannula 06/06/23 09:45 85 20 116/82 100 Oxymask 06/06/23 09:38 37.0 C 73 18 105/68 97 Oxymask 06/05/23 19:14 36.8 C 90 18 121/71 94 Room Air O2 Flow Rate 06/06/23 10:05 2 06/06/23 09:55 3 06/06/23 09:45 4 06/06/23 09:38 6 06/05/23 19:14 Pain Intensity Left Ankle: Pain Intensity: 4 Transfer of Care Handoff Completed per policy Notes Mental Status: alert / awake / arousable Patient Amnestic to Procedure: Yes Nausea / Vomiting: adequately controlled Pain: adequately controlled Airway Patency, RR, SpO2: stable & adequate BP & HR: stable & adequate Hydration State: stable & adequate Anesthetic Complications: no major complications apparent
[2023-06-06] MEDS: SODIUM CHLORIDE 0.9% 1,000 ML IV SCH (11:47)
[2023-06-06] MEDS ORDERED: ceFAZolin 330 MG/ML 1 GM VIAL ONE (13:14)
[2023-06-06] MEDS: ceFAZolin 2000MG 2,000 MG/15 ML SYR IV SCH (15:55)
[2023-06-06 15:56] LABS: Hematocrit (blood only) 34.4 % (37.0-47.0); Hemoglobin 11.2 g/dl (12.0-16.0)
[2023-06-06] MEDS: ACETAMINOPHEN 1,000 MG/100 ML VIAL IV PRN (18:22)
--- NOTE | 2023-06-06 19:38 | Hospitalist Progress Note ---
Date of Service June 06, 2023 Assessment & Plan (1) Left trimalleolar fracture: Plan: s/p ORIF of this fracture today by Dr Nix. Appreciate his assistance. Vitamin D level wnl. DVT proph - asa 81mg BID. Pain meds prn - IV & PO. Repeat H/H post-op acceptable but suspect by tomorrow there will be significant drop. 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 have 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 two of the 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 (they are based in [place]) come to stay with her to help with recovery Admission and Anticipated Discharge Date Admission Date: June 04, 2023 Subjective saw patient post-op from her left ankle ORIF was resting comfortably in bed denied any post-op chest pain, dyspnea, nausea, abd pain had nerve block for L ankle surgery; thus no significant pain in the operative site 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 [employer] but main residence is [place] Review of Systems Review of Systems: gen - feels ok neuro - denies syncope prior to her fall cv - denies cp pulm - denies dyspnea GI - no abd pain Physical Exam Physical Exam: gen - NAD, looks well skin - generalized pallor neck - no JVD mouth - MMM heart - RRR, s1 s2, no murmur lungs - CTA b/l abd - soft NT ND BS+ ext - right foot/ankle in splint; left foot/ankle in walking boot; cap refill b/l toes < 2 sec; warm feet b/l Results & Data Results & Data Vital Signs (Past 12 Hours) Vital Signs Temp Pulse Pulse Resp BP Pulse Ox O2 Del Method 06/06/23 19:35 36.8 C 78 18 100/58 L 95 Room Air 06/06/23 13:30 36.4 C L 75 18 100/66 93 Room Air 06/06/23 12:30 36.9 C 77 18 107/69 96 Room Air 06/06/23 11:30 36.8 C 68 18 104/67 96 Room Air 06/06/23 11:02 68 16 99/63 L 98 Nasal Cannula 06/06/23 10:30 Nasal Cannula 06/06/23 10:30 36.9 C 68 16 115/73 96 Nasal Cannula 06/06/23 10:15 75 14 117/65 97 Nasal Cannula 06/06/23 10:05 37.2 C 69 16 113/70 98 Nasal Cannula 06/06/23 09:55 69 14 110/62 96 Nasal Cannula 06/06/23 09:45 85 20 116/82 100 Oxymask 06/06/23 09:38 37.0 C 73 18 105/68 97 Oxymask O2 Flow Rate 06/06/23 19:35 06/06/23 13:30 06/06/23 12:30 06/06/23 11:30 06/06/23 11:02 2 06/06/23 10:30 2 06/06/23 10:30 2 06/06/23 10:15 2 06/06/23 10:05 2 06/06/23 09:55 3 06/06/23 09:45 4 06/06/23 09:38 6 Laboratory Results Laboratory Results - last 48 hr 06/05/23 06/06/23 06/06/23 06:21 05:15 15:24 WBC 6.32 5.32 RBC 3.58 L 3.43 L Hgb 11.1 L 10.5 L 11.2 L Hct 32.8 L 31.8 L 34.4 L MCV 91.6 92.7 MCH 31.0 30.6 MCHC 33.8 33.0 RDW Std Deviation 40.0 40.3 RDW Coeff of Walt 11.9 11.9 Plt Count 183 161 MPV 9.5 9.3 L Immature Gran % (Auto) 0.5 0.2 Neut % (Auto) 73.3 66.4 Lymph % (Auto) 17.2 22.7 [place] % (Auto) 7.9 7.5 Eos % (Auto) 0.8 2.6 Baso % (Auto) 0.3 0.6 Neut # (Auto) 4.63 3.53 Lymph # (Auto) 1.09 L 1.21 [place] # (Auto) 0.50 0.40 Eos # (Auto) 0.05 0.14 Baso # (Auto) 0.02 0.03 Immature Gran # (Auto) 0.03 0.01 Sodium 139 139 Potassium 3.8 3.8 Chloride 106 107 Carbon Dioxide 29 26 Anion Gap 4 6 BUN 10 9 Creatinine 0.57 L 0.53 L Est Cr Clr Drug Dosing 65.3 70.2 Est GFR ( Amer) 102.2 104.7 Est GFR (Non-Af Amer) 88.2 90.3 BUN/Creatinine Ratio 17.5 17.0 Glucose 100 H 99 Calcium 8.2 L 7.8 L 25-OH Vitamin D Total 39.0 PG Care Time/CCT Total # of Minutes Spent Total Time Spent with Patient: Total time spent is greater than 50% in coordination of care (as documented) at patient's floor/unit and/or counseling patient: Coding Level of Care Code 19945 SUB INP/OBS CARE 2/35MIN Diagnoses Left trimalleolar fracture S82.852A Encounter type: initial encounter Fracture type: closed Hypothyroidism E03.9 GERD (gastroesophageal reflux disease) K21.9 Closed fracture of distal end of right fibula S82.831A Encounter type: initial encounter Fracture morphology: unspecified fracture morphology Acute blood loss anemia D62 (1) Left trimalleolar fracture Encounter type: initial encounter Fracture type: closed Qualified Code(s): S82.852A - Displaced trimalleolar fracture of left lower leg, initial encounter for closed fracture (4) Closed fracture of distal end of right fibula Encounter type: initial encounter Fracture morphology: unspecified fracture morphology Qualified Code(s): S82.831A - Other fracture of upper and lower end of right fibula, initial encounter for closed fracture
[2023-06-06] MEDS: oxyCODONE HCL IR 5 MG TAB (IMMEDIATE RELEASE) PO PRN (19:47)
[2023-06-06] MEDS: SENNA 8.6 MG TAB PO SCH (20:44)
[2023-06-06] MEDS: DOCUSATE SODIUM 100 MG CAP PO SCH (20:45)
[2023-06-07 06:42] LABS: Basophils # (auto) 0.02 K/uL (0.00-0.20); Basophils % (auto) 0.4 %; Eosinophils % (auto) 1.8 %; Hematocrit (blood only) 29.4 % (37.0-47.0); Hemoglobin 9.5 g/dl (12.0-16.0); Immature Granulocytes # (auto) 0.02 K/uL (0.01-0.20); Immature Granulocytes % (auto) 0.4 %; Lymphocytes # (auto) 1.56 K/uL (1.20-3.40); Lymphocytes % (auto) 27.5 %; Mean Corpuscular Hemoglobin 30.5 pg (25.0-34.0); Mean Corpuscular Hgb Conc 32.3 g/dL (32.0-36.0); Mean Corpuscular Volume 94.5 fL (80.0-100.0); Mean Platelet Volume 9.6 fL (9.4-12.4); Monocytes # (auto) 0.46 K/uL (0.11-0.59); Monocytes % (auto) 8.1 %; Neutrophils # (auto) 3.51 K/uL (1.40-6.50); Neutrophils % (auto) 61.8 %; Platelet Count 144 K/uL (130-400); RDW Coefficient of Variation 11.9 % (11.5-14.5); RDW Standard Deviation 40.6 fL (36.4-46.3); Red Blood Count 3.11 M/uL (4.20-5.40); White Blood Count 5.67 K/ul (4.8-10.8)
[2023-06-07 06:59] LABS: BUN Creatinine Ratio 15.7 (10-20); Calcium 7.5 mg/dl (8.6-10.3); Creatinine Clr Calc Pharmacy 72.9 ml/min; Est GFR (Non-African American) 91.5 ml/min; Potassium 3.6 mmol/L (3.5-5.1)
[2023-06-07 08:12] LABS: Thyroid Stimulating Hormone 0.94 uIu/ml (0.300-4.500)
[2023-06-07] MEDS: MULTIVITAMIN TAB PO SCH (08:34)
[2023-06-07] MEDS: ASPIRIN 81 MG ECTAB PO SCH (08:35)
[2023-06-07] MEDS: PANTOprazole 40 MG TAB PO SCH (08:46)
[2023-06-07] MEDS ORDERED: ASPIRIN 81 MG ECTAB PO SCH (09:00)
--- NOTE | 2023-06-07 09:14 | Orthopedic Progress Note ---
Date of Service June 07, 2023 Assessment & Plan (1) Left trimalleolar fracture: Plan: 77 yo female stable POD #1 s/p ORIF left ankle fracture, nonop treatment right ankle fracture 1. Med management 2. DVT prophylaxis- ASA- pt states h/o prior gastric ulcer and contraindication to ASA, consider Lovenox for 14 days postop? 3. PT/OT 4. D/C planning- home vs rehab, ortho to sign off, follow-up with Dr Nix as an outpt (2) Closed fracture of distal end of right fibula: Admission and Anticipated Discharge Date Admission Date: June 04, 2023 Subjective Pt resting in bed, moderate post op pain, better controlled this AM Physical Exam Physical Exam: Cam boot in place right, postop splint in place left, toes mobile, NVI Results & Data Vital Signs (Past 12 Hours) Vital Signs Temp Pulse Resp BP Pulse Ox O2 Del Method 06/07/23 07:29 37 C 85 16 115/72 93 Room Air 06/07/23 03:15 37 C 76 18 105/66 95 Room Air 06/06/23 22:26 36.7 C 69 18 97/59 L 93 Room Air Laboratory Results 06/07/23 06/06/23 Range/Units 05:49 15:24 WBC 5.67 (4.8-10.8) K/ul RBC 3.11 L (4.20-5.40) M/uL Hgb 9.5 L 11.2 L (12.0-16.0) g/dl Hct 29.4 L 34.4 L (37.0-47.0) % MCV 94.5 (80.0-100.0) fL MCH 30.5 (25.0-34.0) pg MCHC 32.3 (32.0-36.0) g/dL RDW Std Deviation 40.6 (36.4-46.3) fL RDW Coeff of Walt 11.9 (11.5-14.5) % Plt Count 144 (130-400) K/uL MPV 9.6 (9.4-12.4) fL Immature Gran % (Auto) 0.4 % Neut % (Auto) 61.8 % Lymph % (Auto) 27.5 % [place] % (Auto) 8.1 % Eos % (Auto) 1.8 % Baso % (Auto) 0.4 % Neut # (Auto) 3.51 (1.40-6.50) K/uL Lymph # (Auto) 1.56 (1.20-3.40) K/uL [place] # (Auto) 0.46 (0.11-0.59) K/uL Eos # (Auto) 0.10 (0.00-0.50) K/uL Baso # (Auto) 0.02 (0.00-0.20) K/uL Immature Gran # (Auto) 0.02 (0.01-0.20) K/uL Sodium 142 (136-145) mmol/L Potassium 3.6 (3.5-5.1) mmol/L Chloride 110 H (98-107) mmol/L Carbon Dioxide 28 (21-32) mmol/L Anion Gap 4 (3-11) BUN 8 (6-23) mg/dl Creatinine 0.51 L (0.6-1.2) mg/dl Est Cr Clr Drug Dosing 72.9 ml/min Est GFR ( Amer) 106.0 ml/min Est GFR (Non-Af Amer) 91.5 ml/min BUN/Creatinine Ratio 15.7 (10-20) Glucose 97 (70-99(Fasting)) mg/dl Calcium 7.5 L (8.6-10.3) mg/dl 25-OH Vitamin D Total 39.0 (30-100) ng/ml TSH 0.940 (0.300-4.500) uIu/ml (1) Left trimalleolar fracture Encounter type: initial encounter Fracture type: closed Qualified Code(s): S82.852A - Displaced trimalleolar fracture of left lower leg, initial encounter for closed fracture (2) Closed fracture of distal end of right fibula Encounter type: initial encounter Fracture morphology: unspecified fracture morphology Qualified Code(s): S82.831A - Other fracture of upper and lower end of right fibula, initial encounter for closed fracture
--- NOTE | 2023-06-07 15:02 | Hospitalist Progress Note ---
Date of Service June 07, 2023 Assessment & Plan (1) Left trimalleolar fracture: Plan: POD #1 - s/p ORIF by Dr Nix. Appreciate his assistance. Vitamin D level wnl. DVT proph - patient with concerns of using aspirin due to prior h/o presumed duodenal ulcer with perforation. We discussed importance of chemical DVT proph. We reviewed options and risks/benefits. We decided together to use Eliquis 2.5mg BID -- will start tonight. Pain meds prn. H/H noted today - no need for PRBCs but will give a dose of IV venofer tomorrow. PT/OT --- non-weightbearing status to LLE. (2) Hypothyroidism: Plan: Continue Synthroid TSH wnl (3) GERD (gastroesophageal reflux disease): Plan: Continue Protonix BID (increased to BID for GI prophy due to her past history) Prior h/o duodenal ulcer with perforation in the past -- see below (4) Closed fracture of distal end of right fibula: Plan: right distal fibula fracture non-operative management WBAT in CAM walker boot (5) Acute blood loss anemia: Plan: 2nd to b/l ankle fractures H/H noted today will give 300mg of IV venofer tomorrow am recheck CBC in am (6) Irregular heart rhythm: Plan: suspect I was hearing extra beats today -- likely not a.fib EKG obtained - NSR; no a.fib monitor (7) Right thigh pain: Plan: off/on for weeks-months obtain doppler RLE -- r/o DVT (8) DVT prophylaxis: Plan: was initially on aspirin 81mg BID due to #9 patient concerned about using an NSAID we reviewed & discussed different chemical DVT proph options after this discussion will stop aspirin and use Eliquis 2.5mg BID PPI increased to BID dosing (9) Duodenal ulcer with perforation: Plan: ~3 years ago presumed duodenal ulcer with perforation did not require surgery treated conservatively with PPI & bowel rest has been on PPI since this episode was attributed to baby aspirin use chronically increase PPI to twice daily dosing as noted above Plan progressing nicely home with home health/PT/OT and assistance from nuns from the [employer] ?? Admission and Anticipated Discharge Date Admission Date: June 04, 2023 Subjective pt states she had a rough night last pm due to severe pain in LLE minor pain in right leg only during ambulation passing flatus but no stool no dyspnea no chest pain patient intends to return home locally 2 sisters with her [employer] ([employer]) will be coming to help her during her recovery we heavily discussed her history of duodenal perforation about 3 years ago she had presented to a hospital in [place] a/p with evidence of perforation/free air treated conservatively with NPO status did not have EGD during the index stay was presumed to have duodenal ulcer with perforation? several weeks following the admission she did undergo outpatient EGD and was told it was normal has been on PPI since then etiology - felt to be low-dose aspirin 81mg daily; thus, it was stopped at that time we had lengthy conversation about the need for DVT proph - we discussed increase in PPI; we discussed asa BID vs Eliquis vs Xarelto vs lovenox ultimately went with Eliquis low-dose for DVT proph Review of Systems Review of Systems: gen - no fevers, eating well cv - no cp, no orthopnea pulm - no dyspnea GI - no abd pain or N/V musculo - right posterior thigh pain for weeks-months, off/on Physical Exam Physical Exam: gen - NAD, looks well, pleasant skin - generalized pallor neck - no JVD mouth - MMM heart - irregular (extra beats?); s1 s2, no murmur lungs - CTA b/l abd - soft NT ND BS+ ext - right foot/ankle in walking boot; edema of right foot present; pulses R foot 2+; cap refill R foot <2 seconds; left foot/ankle/leg in splint; left foot toes exposed; toes are warm cap refill < 2 seconds; toes mildly edematous psych - a/o x 3 Results & Data Results & Data Vital Signs (Past 12 Hours) Vital Signs Temp Pulse Resp BP Pulse Ox O2 Del Method 06/07/23 14:02 37.0 C 75 16 101/56 L 94 Room Air 06/07/23 07:29 37 C 85 16 115/72 93 Room Air 06/07/23 03:15 37 C 76 18 105/66 95 Room Air Laboratory Results Laboratory Results - last 48 hr 06/06/23 06/07/23 15:24 05:49 WBC 5.67 RBC 3.11 L Hgb 11.2 L 9.5 L Hct 34.4 L 29.4 L MCV 94.5 MCH 30.5 MCHC 32.3 RDW Std Deviation 40.6 RDW Coeff of Walt 11.9 Plt Count 144 MPV 9.6 Immature Gran % (Auto) 0.4 Neut % (Auto) 61.8 Lymph % (Auto) 27.5 [place] % (Auto) 8.1 Eos % (Auto) 1.8 Baso % (Auto) 0.4 Neut # (Auto) 3.51 Lymph # (Auto) 1.56 [place] # (Auto) 0.46 Eos # (Auto) 0.10 Baso # (Auto) 0.02 Immature Gran # (Auto) 0.02 Sodium 142 Potassium 3.6 Chloride 110 H Carbon Dioxide 28 Anion Gap 4 BUN 8 Creatinine 0.51 L Est Cr Clr Drug Dosing 72.9 Est GFR ( Amer) 106.0 Est GFR (Non-Af Amer) 91.5 BUN/Creatinine Ratio 15.7 Glucose 97 Calcium 7.5 L 25-OH Vitamin D Total 39.0 TSH 0.940 PG Care Time/CCT Total # of Minutes Spent Total Time Spent with Patient: Total time spent is greater than 50% in coordination of care (as documented) at patient's floor/unit and/or counseling patient: Coding Level of Care Code 19586 SUB INP/OBS CARE 3/50MIN Diagnoses Left trimalleolar fracture S82.852A Encounter type: initial encounter Fracture type: closed Hypothyroidism E03.9 GERD (gastroesophageal reflux disease) K21.9 Closed fracture of distal end of right fibula S82.831A Encounter type: initial encounter Fracture morphology: unspecified fracture morphology Acute blood loss anemia D62 Irregular heart rhythm I49.9 Right thigh pain M79.651 DVT prophylaxis Z29.9 Duodenal ulcer with perforation K26.5 (1) Left trimalleolar fracture Encounter type: initial encounter Fracture type: closed Qualified Code(s): S82.852A - Displaced trimalleolar fracture of left lower leg, initial encounter for closed fracture (4) Closed fracture of distal end of right fibula Encounter type: initial encounter Fracture morphology: unspecified fracture morphology Qualified Code(s): S82.831A - Other fracture of upper and lower end of right fibula, initial encounter for closed fracture
--- NOTE | 2023-06-07 16:10 | Ultrasound Report ---
US venous doppler LE RT HISTORY: 77 years-old Female Right thigh pain x several weeks, travel; r/o DVT acute pain of the rig ht lower extremity with recent travel COMPARISON: None TECHNIQUE: Multiple real-time sonographic images of the right lower extremity deep venous structures were obtained assessing grayscale appearance, color and spectral flow. FINDINGS: Normal flow, compressibility, phasicity and augmentation. Limited exam secondary to patient's walking boot. IMPRESSION: No sonographic evidence of deep venous thrombosis. ACT 112: Negative or not required by law. The above report was generated using voice recognition software. It may contain grammatical, syntax o r spelling errors. Electronically signed by: Joon Can M.D. 06/07/2023 4:09 PM
[2023-06-07] MEDS: ACETAMINOPHEN 500 MG TAB PO SCH (21:51)
[2023-06-07] MEDS: APIXABAN 2.5 MG TAB PO SCH (21:52)
[2023-06-08 06:39] LABS: Hemoglobin 10.7 g/dl (12.0-16.0); Mean Corpuscular Hemoglobin 30.8 pg (25.0-34.0); Mean Corpuscular Hgb Conc 33.4 g/dL (32.0-36.0); Mean Corpuscular Volume 92.2 fL (80.0-100.0); Mean Platelet Volume 9.6 fL (9.4-12.4); Platelet Count 175 K/uL (130-400); RDW Coefficient of Variation 11.9 % (11.5-14.5); RDW Standard Deviation 40.1 fL (36.4-46.3); Red Blood Count 3.47 M/uL (4.20-5.40); White Blood Count 4.96 K/ul (4.8-10.8)
[2023-06-08] MEDS: POLYETHYLENE (MIRALAX) 17 GM PACK PO SCH (08:12)
[2023-06-08] MEDS: IRON SUCROSE 300 MG in SODIUM CHLORIDE 0.9% 250 ML IV ONE (09:07)
--- NOTE | 2023-06-08 14:57 | Electrocardiogram Report ---
Test Reason : Blood Pressure : / mmHG Vent. Rate : 087 BPM Atrial Rate : 087 BPM P-R Int : 136 ms QRS Dur : 074 ms QT Int : 356 ms P-R-T Axes : 015 013 034 degrees QTc Int : 428 ms Normal sinus rhythm Low voltage QRS Borderline ECG When compared with ECG of 04-JUN-2023 18:35, No significant change was found Confirmed by Nicola Brown ([id number]) on 06/08/2023 2:57:09 PM Referred By: REFERRED SELF Confirmed By:Nicola Brown
--- NOTE | 2023-06-08 17:04 | Hospitalist Progress Note ---
Date of Service June 08, 2023 Assessment & Plan (1) Left trimalleolar fracture: Plan: 77 y/o admitted with bilateral ankle fractures after mechanical fall - stepped off a curb ORIF by Dr Nix 06/05 Follow up with him while in [place], then in about a month will go to [place] for the summer and will need to establish local ortho follow up - discussed Vitamin D level wnl. DVT proph - cont apixaban 2.5 bid. Had previous perforated DU so prefers to avoid aspirin Stopped morphine IV (none x 24h) cont APAP, oxycodone prn PT/OT --- non-weightbearing status to LLE. Recommended rehab because she still has difficulty protecting NWB on LLE. Referred to [facility]. (2) Closed fracture of distal end of right fibula: Plan: right distal fibula fracture non-operative management WBAT in CAM walker boot (3) Hypothyroidism: Plan: Continue Synthroid TSH wnl (4) GERD (gastroesophageal reflux disease): Plan: Continue Protonix BID (increased to BID for GI prophy due to her past history) Prior h/o duodenal ulcer with perforation in the past -- see below (5) Acute blood loss anemia: Plan: 2nd to b/l ankle fractures 300mg of IV venofer 06/06 CBC stable today (6) Right thigh pain: Plan: off/on for weeks-months obtain doppler RLE -- r/o DVT (7) Duodenal ulcer with perforation: Plan: ~3 years ago presumed duodenal ulcer with perforation did not require surgery treated conservatively with PPI & bowel rest has been on PPI since this episode was attributed to baby aspirin use chronically increased PPI to twice daily dosing as noted above. can go back to daily when anticoagulation stopped Plan Admission and Anticipated Discharge Date Admission Date: June 04, 2023 Subjective Bilateral ankle pain much improved today, including with standing. No dyspnea/CP/nausea, had BM today Physical Exam 2 Physical Exam: PHYSICAL EXAMINATION Last 24h vital signs reviewed, see documentation in flowsheet General: comfortable appearing, no distress HEENT: Normocephalic, atraumatic, pupils round and equal, sclerae anicteric, no conjunctival injection, moist mucus membranes Lungs: Normal respiratory effort. Heart: Abdomen: nondistended. Extremities: toes bilaterally are warm and well-perfused. Wearing surgical shoe right lower extremity and cast on left lower extremity Neuro: Alert and oriented x 4, face symmetric, moves 4 extremities well Psych: Normal affect and behavior Results & Data Results & Data Vital Signs (Past 12 Hours) Vital Signs Temp Pulse Resp BP Pulse Ox O2 Del Method 06/08/23 14:48 37.0 C 80 16 126/79 95 Room Air 06/08/23 11:17 36.8 C 82 17 117/77 96 Room Air 06/08/23 10:32 36.8 C 83 17 128/80 96 Room Air 06/08/23 09:39 99 H 126/84 06/08/23 09:10 36.9 C 90 17 96 Room Air 06/08/23 07:04 37.1 C 77 16 110/76 94 Room Air Laboratory Results 06/08/23 06:03 06/07/23 05:49 PG Care Time/CCT Total # of Minutes Spent Total Time Spent with Patient: Total time spent is greater than 50% in coordination of care (as documented) at patient's floor/unit and/or counseling patient: Coding Level of Care Code 17242 SUB INP/OBS CARE 2/35MIN Diagnoses Left trimalleolar fracture S82.852A Encounter type: initial encounter Fracture type: closed Closed fracture of distal end of right fibula S82.831A Encounter type: initial encounter Fracture morphology: unspecified fracture morphology Hypothyroidism E03.9 GERD (gastroesophageal reflux disease) K21.9 Acute blood loss anemia D62 Right thigh pain M79.651 Duodenal ulcer with perforation K26.5 (1) Left trimalleolar fracture Encounter type: initial encounter Fracture type: closed Qualified Code(s): S 82.852A - Displaced trimalleolar fracture of left lower leg, initial encounter for closed fracture (2) Closed fracture of distal end of right fibula Encounter type: initial encounter Fracture morphology: unspecified fracture morphology Qualified Code(s): S82.831A - Other fracture of upper and lower end of right fibula, initial encounter for closed fracture
--- NOTE | 2023-06-09 15:28 | Hospitalist Progress Note ---
Date of Service June 09, 2023 Assessment & Plan (1) Left trimalleolar fracture: Plan: 77 y/o admitted with bilateral ankle fractures after mechanical fall - stepped off a curb ORIF by Dr Nix 06/05 Follow up with him while in [place], then in about a month will go to [place] for the summer and will need to establish local ortho follow up - discussed Vitamin D level wnl. Acute blood loss anemia - Related to fracture/surgery - Hct normal initially, dilutional drop after admission/IVF, thereafter stable with Hct around 32. oral iron few weeks DVT proph - cont apixaban 2.5 bid. Had previous perforated DU so prefers to avoid aspirin Stopped morphine IV (none x 24h) cont APAP, oxycodone prn PT/OT --- non-weightbearing status to LLE. Recommended rehab because she still has difficulty protecting NWB on LLE. Referred to [facility] pending. (2) Closed fracture of distal end of right fibula: Plan: right distal fibula fracture non-operative management WBAT in CAM walker boot (3) Hypothyroidism: Plan: Continue Synthroid TSH wnl (4) GERD (gastroesophageal reflux disease): Plan: Continue Protonix BID (increased to BID for GI prophy due to her past history) Prior h/o duodenal ulcer with perforation in the past -- see below (5) Acute blood loss anemia: Plan: 2nd to b/l ankle fractures 300mg of IV venofer 06/06 CBC stable today (6) Right thigh pain: Plan: off/on for weeks-months obtain doppler RLE -- r/o DVT (7) Duodenal ulcer with perforation: Plan: ~3 years ago presumed duodenal ulcer with perforation did not require surgery treated conservatively with PPI & bowel rest has been on PPI since this episode was attributed to baby aspirin use chronically increased PPI to twice daily dosing as noted above. can go back to daily when anticoagulation stopped Plan Admission and Anticipated Discharge Date Admission Date: June 04, 2023 Subjective doing really well, no pain R ankle, L ankle pain improved - intermittent sharp spikes but has not used any opioid meds today Physical Exam Physical Exam: PHYSICAL EXAMINATION Last 24h vital signs reviewed, see documentation in flowsheet General: comfortable appearing, no distress exam unchanged 06/08- HEENT: Normocephalic, atraumatic, pupils round and equal, sclerae anicteric, no conjunctival injection, moist mucus membranes Lungs: Normal respiratory effort. Heart: Abdomen: nondistended. Extremities: toes bilaterally are warm and well-perfused. Wearing CAM boot right lower extremity and cast on left lower extremity Neuro: Alert and oriented x 4, face symmetric, moves 4 extremities well Psych: Normal affect and behavior Results & Data Results & Data Vital Signs (Past 12 Hours) Vital Signs Temp Pulse Resp BP Pulse Ox O2 Del Method 06/09/23 07:11 36.6 C 86 16 130/77 95 Room Air PG Care Time/CCT Total # of Minutes Spent Total Time Spent with Patient: Total time spent is greater than 50% in coordination of care (as documented) at patient's floor/unit and/or counseling patient: Coding Level of Care Code 65318 SUB INP/OBS CARE 03/04MIN Diagnoses Left trimalleolar fracture S82.852A Encounter type: initial encounter Fracture type: closed Closed fracture of distal end of right fibula S82.831A Encounter type: initial encounter Fracture morphology: unspecified fracture morphology Hypothyroidism E03.9 GERD (gastroesophageal reflux disease) K21.9 Acute blood loss anemia D62 Right thigh pain M79.651 Duodenal ulcer with perforation K26.5 (1) Left trimalleolar fracture Encounter type: initial encounter Fracture type: closed Qualified Code(s): S82.852A - Displaced trimalleolar fracture of left lower leg, initial encounter for closed fracture (2) Closed fracture of distal end of right fibula Encounter type: initial encounter Fracture morphology: unspecified fracture morphology Qualified Code(s): S82.831A - Other fracture of upper and lower end of right fibula, initial encounter for closed fracture
--- NOTE | 2023-06-09 17:07 | Discharge Summary ---
Date of Service June 11, 2023 Admission HPI Per Admitting Provider She is seen at the bedside with her friend Megan present. She is visiting from out of town, [place]. Samantha reports she is normally very healthy and has no medical history other than a history of perforated duodenal ulcer almost 3 years ago. OK now on protonix, and also result to be due to aspirin which is discontinued. She has a history of cervical arthritis and past injury which had some transient numbness and tingling but resolved following initial steroid injections and now does well with PT alone. No weakness or strength deficits. She is a avid walker, somewhat limited by intermittent rare arthritis knee pain but otherwise with no pain and has no history of shortness of breath, dyspnea, chest pain, chest pressure, CHF. She has no history of diabetes. No history of strokes. Denies hypertension. She has not had any bleeding/clotting disease. She has had a rash to Mobic otherwise no medication allergies. She drinks intermittently socially, not daily and not in excess. No current or past tobacco use. No recreational drug use. No history of insulin use Medical History: Reviewed Medications: Reviewed Surgical History: Reviewed Family history: Reviewed Allergies: Reviewed. Rash to mobic. Social History:No tobacco use. Rare social etoh use Code Status: Full Code Surrogate DM: Megan Philippe [phone] Principal Diagnosis Bilateral ankle fractures secondary to mechanical fall Discharge Exam PHYSICAL EXAMINATION Last 24h vital signs reviewed, see documentation in flowsheet General: comfortable appearing, no distress HEENT: Normocephalic, atraumatic, pupils round and equal, sclerae anicteric, no conjunctival injection, moist mucus membranes Lungs: Normal respiratory effort. CTAB Heart: Reg no mrg Abdomen: nondistended. Extremities: toes bilaterally are warm and well-perfused. Wearing CAM boot right lower extremity and cast on left lower extremity Neuro: Alert and oriented x 4, face symmetric, moves 4 extremities well Psych: Normal affect and behavior Discharge Data Allergies Allergy/AdvReac Type Severity Reaction Status Date / Time meloxicam [From Mobic] AdvReac Intermediate Rash Unverified 06/04/23 18:45 Consultations 06/04/23 18:59 ED Decision to Admit Stat 06/04/23 21:11 Consult Orthopedic Surgery Routine Procedures Performed Operation Date: 06/06/23 07:30 Actual Procedures p Open Reduction Internal Fixation Left Ankle(Left) - Joon Nix DO Ordered Studies 06/06/23 07:08 US - OR guided needle placemen Routine 06/06/23 07:30 FL ankle LT 2V Routine 06/07/23 15:00 US venous doppler LE RT Urgent Ankle X-Ray 06/04/23 16:19 XR ankle RT min 3V routine HISTORY: 77 years-old Female pain fall acute right ankle pain status post fall COMPARISON: None TECHNIQUE: 3 views of the right ankle FINDINGS: Moderate to marked anterolateral prominent soft tissue swelling. Demineralized appearance of the bones. There is an acute transversely oriented fracture of the lateral malleolus with extension into the lateral clear space demonstrating 4 mm distal distraction. Os trigonum. Small joint effusion. No additional acute fracture or dislocation. IMPRESSION: Acute lateral malleolar fracture with soft tissue swelling. ACT 112: Negative or not required by law. The above report was generated using voice recognition software. It may contain grammatical, syntax or spelling errors. Electronically signed by: Joon Can M.D. 06/04/2023 6:08 PM Ankle X-Ray 06/04/23 16:19 XR ankle LT 2V HISTORY: 77 years-old Female pain fall acute left ankle pain status post fall COMPARISON: None TECHNIQUE: 2 views of the left ankle FINDINGS: Limited exam secondary to positioning. Demineralized appearance of the bones. Mild to moderate osteoarthritis. Acute fracture dislocation of the ankle. Acute and displaced medial malleolar fracture demonstrates 2 mm lateral displacement. Acute, comminuted, angulated and displaced distal fibular fracture demonstrates approximately 4 mm lateral and 2.5 cm posterior displacement. Moderate soft tissue swelling. There is apex medial angulation of the dislocated tibiotalar joint. Probable acute nondisplaced posterior malleolar fracture. IMPRESSION: Acute fracture dislocation of the ankle as above. ACT 112: Negative or not required by law. The above report was generated using voice recognition software. It may contain grammatical, syntax or spelling errors. Electronically signed by: Joon Can M.D. 06/04/2023 6:10 PM Ankle X-Ray 06/04/23 17:46 XR ankle LT min 3V routine HISTORY: 77 years-old Female post reduction/splint acute left ankle pain status post trauma COMPARISON: Left ankle radiographs of same day TECHNIQUE: 3 views of the left ankle FINDINGS: Status post reduction and casting of the acute left ankle fractures. There is improved alignment of the ankle fractures, suboptimally evaluated secondary to overlying casting material. 5 mm lateral displacement of the lateral malleolar fracture. Posterior malleolar fracture demonstrates 5 mm posterior displacement. 2 mm medial displacement of the medial malleolar fracture. No dislocation. IMPRESSION: 1. Improved alignment of the acute trimalleolar ankle fracture status post reduction and casting. 2. Status post reduction of the tibiotalar joint. ACT 112: Negative or not required by law. The above report was generated using voice recognition software. It may contain grammatical, syntax or spelling errors. Electronically signed by: Joon Can M.D. 06/04/2023 6:21 PM Ankle X-Ray 06/06/23 07:30 FL ankle LT 2V CLINICAL HISTORY: LT ANKLE ORIF COMPARISON STUDY: None. FLUOROSCOPY TIME: 22 seconds FLUOROSCOPY IMAGES: 2 Ka,r: 0.5 mGy FINDINGS: Status post internal fixation of a trimalleolar left ankle fracture. The hardware appears intact. Alignment appears near-anatomic. IMPRESSION: Fluoroscopic assistance as above. ACT 112: Negative or not required by law. Electronically signed by: Shorty Mcdowell M.D. 06/06/2023 9:40 AM Venous Doppler Study 06/07/23 15:00 US venous doppler LE RT HISTORY: 77 years-old Female Right thigh pain x several weeks, travel; r/o DVT acute pain of the right lower extremity with recent travel COMPARISON: None TECHNIQUE: Multiple real-time sonographic images of the right lower extremity deep venous structures were obtained assessing grayscale appearance, color and spectral flow. FINDINGS: Normal flow, compressibility, phasicity and augmentation. Limited exam secondary to patient's walking boot. IMPRESSION: No sonographic evidence of deep venous thrombosis. ACT 112: Negative or not required by law. The above report was generated using voice recognition software. It may contain grammatical, syntax or spelling errors. Electronically signed by: Joon Can M.D. 06/07/2023 4:09 PM 06/08/23 06:03 06/07/23 05:49 Hospital Course (1) Left trimalleolar fracture: 77 y/o admitted with bilateral ankle fractures after mechanical fall - stepped off a curb ORIF by Dr Nix 06/05 Follow up with him while in [place], then in about a month will go to [place] for the summer and will need to establish local ortho follow up - discussed Vitamin D level wnl. Acute blood loss anemia - Related to fracture/surgery - Hct normal initially, dilutional drop after admission/IVF, thereafter stable with Hct around 32. oral iron few weeks DVT proph - cont apixaban 2.5 bid. Had previous perforated DU so prefers to avoid aspirin pain control - cont APAP, oxycodone 5 mg prn (uses infrequently) PT/OT --- non-weightbearing status to LLE. Recommended rehab because she still has difficulty protecting NWB on LLE. [facility]erred [facility] (2) Closed fracture of distal end of right fibula: right distal fibula fracture non-operative management WBAT in CAM walker boot (3) Hypothyroidism: Continue Synthroid TSH wnl (4) GERD (gastroesophageal reflux disease): Continue Protonix Prior h/o duodenal ulcer with perforation in the past (5) Acute blood loss anemia: 2nd to b/l ankle fractures 300mg of IV venofer 06/06 oral iron CBC in 4-6 weeks to check for resolution (6) Right thigh pain: off/on for weeks-months obtain doppler RLE -- r/o DVT - negative (7) Duodenal ulcer with perforation: ~3 years ago presumed duodenal ulcer with perforation did not require surgery treated conservatively with PPI & bowel rest has been on PPI since this episode was attributed to baby aspirin use chronically Plan Total Time Total Time Spent Total Time Spent (In Minutes): I personally spent: 35 minutes today on clinical care activities including: reviewing chart notes and vital signs discussion with manager care examining and counseling the patient writing orders, discharge instructions documentation Discharge Plan Discharge Items Patient Disposition: Transfer Inpatient Rehab Fac Reason For Visit: BILATERAL ANKLE FXRS Discharge Diagnosis: bilateral ankle fractures, secondary to mechanical fall Activity: Per Instructions section Weightbearing: Left non-weightbearing and Right weightbearing Weightbearing Comment: NWB LLE, may WBAT RLE wearing CAM boot Non-emergency contact: Surgeon Call non-emergency contact if: you have any medication questions and your symptoms worsen Follow-up/Referrals: [facility] [Non-Staff] - Joon Nix, DO [Surgeon] - PCP,NO [Primary Care Provider] - Diet: Regular Addtl Attending Provider Instructions: Fibular fracture of RLE Trimalleolar fracture LLE s/p operative repair Oral iron for postop anemia Addtl Break Up Worker Provider Instructions: Weightbearing as tolerated right LE, nonweightbearing left LE. Maintain postop splint until follow-up with MD. Frequent ice and elevation bilateral lower extremities. Folllow-up with Dr Nix postop day 10-14. Call [phone] for appointment or with questions/concerns Pending Studies at Discharge: No Stand-Alone Forms: My [facility] Skilled Items Patient informed of condition?: Yes DNR: No Discharge Level of Care: Acute rehab Communicable Disease: No Discharge Prognosis: Improving Lines: None Urinary Catheter: No Medications and DC Order Prescriptions: New acetaminophen [Tylenol Extra Strength] 500 mg Tablet 1,000 mg PO TID Qty: 0 0RF ferrous sulfate 325 mg (65 mg iron) Tablet,Delayed Release (Dr/Ec) 325 mg PO QAM Qty: 0 0RF oxycodone 5 mg Tablet 5 mg PO Q4H PRN (Reason: moderate pain (scale score 5-6)) Qty: 10 0RF Eliquis 2.5 mg Tablet 2.5 mg PO BID Qty: 0 0RF sennosides [Senokot] 8.6 mg Tablet 17.2 mg PO HS Qty: 0 0RF polyethylene glycol 3350 [Miralax] 17 gram Powder In Packet 17 g PO BID Qty: 0 0RF magnesium hydroxide [Milk of Magnesia] 400 mg/5 mL Suspension 30 ml PO Q6H PRNQty: 0 0RF bisacodyl 10 mg Suppository 10 mg [place] DAILY PRNQty: 0 0RF multivitamin with folic acid [Daily-Heidy (with folic acid)] 400 mcg Tablet 1 tab PO QAM Qty: 0 0RF Continued alendronate 70 mg tablet 70 mg PO WK Rx Instructions: Wednesday mornings levothyroxine 75 mcg tablet 75 mcg PO QAM pantoprazole 40 mg tablet,delayed release (DR/EC) 40 mg PO HS Vitamin D3 See Rx Instructions .ROUTE .COMPLEX Rx Instructions: otc as directed. unknown dose calcium See Rx Instructions .ROUTE .COMPLEX Rx Instructions: otc as directed. unknown dose Held acetaminophen 500 mg Tablet 500 mg PO UD PRN (Reason: pain or fever) Hold Instructions: Resume on 07/07/23. Rx Instructions: otc as directed. Discharge Orders: Discharge Order (Routine); Ordered 06/11/23 Ordered By: Kimberly Nunez Admission Data Admit Date/Time: 06/04/23 19:30 Attending Provider: Kimberly Nunez Admit Provider: Judah Hollins Primary Care Provider: PCP,NO Other Providers: Judah Hollins; Joon Nix; [facility] Other Interventions: Discharge Summary Assessment (RN) Last Done: 06/11/23 12:19 Coding Level of Care Code 88579 INP/OBS DISCH >30 MIN Diagnoses Left trimalleolar fracture S82.852A Encounter type: initial encounter Fracture type: closed Closed fracture of distal end of right fibula S82.831A Encounter type: initial encounter Fracture morphology: unspecified fracture morphology Hypothyroidism E03.9 GERD (gastroesophageal reflux disease) K21.9 Acute blood loss anemia D62 Right thigh pain M79.651 Duodenal ulcer with perforation K26.5
[2023-06-10 07:11] VITALS: RESP 16
[2023-06-10] MEDS: FERROUS SULFATE 325 MG TAB PO SCH (10:19)
--- NOTE | 2023-06-10 19:21 | Hospitalist Progress Note ---
Date of Service June 10, 2023 Assessment & Plan (1) Left trimalleolar fracture: Plan: 77 y/o admitted with bilateral ankle fractures after mechanical fall - stepped off a curb ORIF by Dr Nix 06/05 Follow up with him while in [place], then in about a month will go to [place] for the summer and will need to establish local ortho follow up - discussed Vitamin D level wnl. Acute blood loss anemia - Related to fracture/surgery - Hct normal initially, dilutional drop after admission/IVF, thereafter stable with Hct around 32. oral iron few weeks DVT proph - cont apixaban 2.5 bid. Had previous perforated DU so prefers to avoid aspirin pain control - cont APAP, oxycodone prn (no doses last 24h) PT/OT --- non-weightbearing status to LLE. Recommended rehab because she still has difficulty protecting NWB on LLE. Referred to [facility], auth pending. (2) Closed fracture of distal end of right fibula: Plan: right distal fibula fracture non-operative management WBAT in CAM walker boot (3) Hypothyroidism: Plan: Continue Synthroid TSH wnl (4) GERD (gastroesophageal reflux disease): Plan: Continue Protonix Prior h/o duodenal ulcer with perforation in the past (5) Acute blood loss anemia: Plan: 2nd to b/l ankle fractures 300mg of IV venofer 06/06 oral iron CBC in 4-6 weeks to check for resolution (6) Right thigh pain: Plan: off/on for weeks-months obtain doppler RLE -- r/o DVT - negative (7) Duodenal ulcer with perforation: Plan: ~3 years ago presumed duodenal ulcer with perforation did not require surgery treated conservatively with PPI & bowel rest has been on PPI since this episode was attributed to baby aspirin use chronically Plan Admission and Anticipated Discharge Date Admission Date: June 04, 2023 Subjective L ankle pain well controlled, no pain R ankle mobility improved - short distance in [place] with PT - walker and hopping - today Physical Exam Physical Exam: PHYSICAL EXAMINATION Last 24h vital signs reviewed, see documentation in flowsheet General: comfortable appearing, no distress exam unchanged 06/09- HEENT: Normocephalic, atraumatic, pupils round and equal, sclerae anicteric, no conjunctival injection, moist mucus membranes Lungs: Normal respiratory effort. Heart: Abdomen: nondistended. Extremities: toes bilaterally are warm and well-perfused. Wearing CAM boot right lower extremity and cast on left lower extremity Neuro: Alert and oriented x 4, face symmetric, moves 4 extremities well Psych: Normal affect and behavior Results & Data Results & Data Vital Signs (Past 12 Hours) Vital Signs Temp Pulse Resp BP Pulse Ox O2 Del Method 06/10/23 15:38 36.6 C 83 16 118/77 95 Room Air PG Care Time/CCT Total # of Minutes Spent Total Time Spent with Patient: Total time spent is greater than 50% in coordination of care (as documented) at patient's floor/unit and/or counseling patient: Coding Level of Care Code 51301 SUB INP/OBS CARE 03/04MIN Diagnoses Left trimalleolar fracture S82.852A Encounter type: initial encounter Fracture type: closed Closed fracture of distal end of right fibula S82.831A Encounter type: initial encounter Fracture morphology: unspecified fracture morphology Hypothyroidism E03.9 GERD (gastroesophageal reflux disease) K21.9 Acute blood loss anemia D62 Right thigh pain M79.651 Duodenal ulcer with perforation K26.5 (1) Left trimalleolar fracture Encounter type: initial encounter Fracture type: closed Qualified Code(s): S 82.852A - Displaced trimalleolar fracture of left lower leg, initial encounter for closed fracture (2) Closed fracture of distal end of right fibula Encounter type: initial encounter Fracture morphology: unspecified fracture morphology Qualified Code(s): S82.831A - Other fracture of upper and lower end of right fibula, initial encounter for closed fracture
[2023-06-11 07:52] VITALS: BP 117/70; PULSE 72; TEMP 97.9; O2SAT 95
== END 2023-06-11 13:21 | DRG 493 ==
LOC: ED 15:42 → 3W 19:30 → SUATTDRO 19:30 → 3W 20:34
DX: E03.9 Hypothyroidism, unspecified; Z88.8 Allergy status to other drugs, medicaments and biological substances; Z79.890 Hormone replacement therapy; K21.9 Gastro-esophageal reflux disease without esophagitis; S82.852A Displaced trimalleolar fracture of left lower leg, initial encounter for closed fracture; Z79.899 Other long term (current) drug therapy; D62 Acute posthemorrhagic anemia; S82.61XA Displaced fracture of lateral malleolus of right fibula, initial encounter for closed fracture